=== PATIENT | female | born 1995 ===

== ENCOUNTER 2023-02-02 11:00 | Outpatient (CLI) | payer OTHER, SELFPAY ==
--- OUTSIDE RECORDS SUMMARY | 2023-02-02 11:02 | XMS_ITS | Continuity of Care Document ---
Author Name Unknown Organization [facility] Ambulatory Clinics Address [address] [place] [address] Encounter [facility] NBR [id number] Date(s): 01/12/23 - 01/12/23 [facility] Ambulatory Clinics [address] [place], [place] [address] Encounter Diagnosis Reactive airway disease(Discharge Diagnosis) - 01/12/23 Discharge Disposition: Home or Self Care Attending Physician: Jessie Diaz PA-C Admitting Physician: Jessie Diaz PA-C Allergies, Adverse Reactions, Alerts No Known Allergies Medications Flovent HFA 220 mcg/inh inhalation aerosol 1 puffs, Inhale, BID, # 12 g, 0 Refill(s), Pharmacy: [facility] #[id number] Start Date: 01/12/23 Stop Date: 02/11/23 Status: Ordered Macrobid 100 mg oral capsule 100 mg = 1 cap, Oral, BID, # 10 cap, 0 Refill(s), Pharmacy: [facility] #[id number] Start Date: 12/03/22 Stop Date: 12/08/22 Status: Ordered Macrobid 100 mg oral capsule 100 mg = 1 cap, Oral, BID, # 10 cap, 0 Refill(s), Pharmacy: [facility] Start Date: 12/03/22 Stop Date: 12/08/22 Status: Ordered Physician Outpatient Note * Jessie Diaz PA-C: PERFORM Event Display: Office Clinic Note Physician Authored Date: [id number] ALEX GARG :1995 Age:27 years Sex:Female Visit Date:01/12/2023 History of Present Illness This is a 27-year-old female who presents for asthma consult. ??Patient is hoping to have a referral to??a quality assurance consultant.?? She has never been formally diagnosed with asthma however she notes that whenever she gets sick or??has allergies??she develops a cough and wheeze that can last for a month orso at a time.?? She uses her albuterol inhaler as needed. ??She has never been prescribed anything else for her asthma. ??She denies any symptoms at rest or any nocturnal symptoms. ??She has never been hospitalized for asthma Physical Exam General: A&O x 3, well-built and hydrated, no acute distress Eyes: PERRLA, no redness or drainage Ears: auditory canals non-tender bilaterally, bilateral TMs translucent and pearly mitchell Nose: nares moist and patent Mouth: moist mucous membranes without lesions Throat: oropharynx and tonsils without erythema or exudate Neck:??5/5 flexion and extension, supple, no lymphadenopathy Chest: symmetric rise Heart: normal S1S2, no murmurs, rubs, gallops Lungs: equal and symmetric respiratory effort, lungs clear to auscultation without wheezes, rales, rhonchi Assessment/Plan 1.??Reactive airway disease??J45.909 Patient's pattern of systems consistent with reactive airway disease.?? I sent a prescription for Flovent inhaler that she can start at the onset of sickness or allergy season. ??I sent a referral topulmonology for??further testing and management. ??She can continue to use her albuterol inhaler??as needed.?? Encouraged follow-up for any asthma symptoms that occur with increasing frequency or severity. ??She agrees with plan Ordered: Flovent HFA 220 mcg/inh inhalation aerosol, 1 puffs, Inhale, BID, # 12 g, 0 Refill(s), Pharmacy: [facility] #[id number] ?? Referral Orders Referral Management, Medical Service: Pulmonology, Reason: asthma, reactive airway disease. please consult - [facility] pulm, Start: 01/12/23 Problem List/Past Medical History Ongoing No qualifying data Historical No qualifying data Medications Flovent HFA 220 mcg/inh inhalation aerosol, 1 puffs, Inhale, BID Macrobid 100 mg oral capsule, 100 mg= 1 cap, Oral, BID Macrobid 100 mg oral capsule, 100 mg= 1 cap, Oral, BID Allergies No Known Allergies Electronically Signed on 01/12/23 06:33 PM Jessie Diaz PA-C
[2023-02-02] MEDS: Inhaler, Assist Device 1 EACH MC (15:02)
[2023-02-02] MEDS: Albuterol HFA 18 GM 200 PUFF INH IH (15:02)
[2023-02-02] MEDS: Methacholine 100 MG VIAL IH (15:02)
--- NOTE | 2023-02-05 12:35 | W.PFT ---
Date of service: 02/02/23 Time of Service: 13:07 Pulmonary Function Test Result Indications: Cough Interpretation Spirometry: There is no airflow limitation. There was a 14% decrease with administration of 16 mg/mL methacholine. Lung Volumes: There is some air trapping. Diffusion Capacity: There is normal diffusion Airway Pressure: Normal airway resistance Impression Normal pulmonary function with a negative methacholine. There is technically air trapping, however I suspect normal function given the elevated DLCO and FVC. I wonder about a possible error with normal ranges for this patient. Clinical Correlation therefore is recommended.
== END 2023-02-02 11:01 | disposition home or self-care (01) ==
LOC: RT 11:00
PROVIDERS: PCP Family Medicine; Visit Provider Physician Assistant Surgical
DX: R05.9 Cough, unspecified (principal)
CPT/HCPCS: 94060; 94070; 94726; 94729; 94010; J7674